=== PATIENT | male | born 1980 | race African-American/Black ===

== ENCOUNTER 2017-08-13 11:54 | Emergency (ER) | payer MEDICAID ==
[~2017-08-13] VITALS: Ht 175.3 cm; Wt 68.9 kg
[~2017-08-13 11:54] MED LIST: ALBUTEROL SULF8.5 GM INH; ATRIPLA TABLET1 EAC1 ORAL; BACTRIM-DS1 EA ORAL; CIPRO500 MG PO; NORCO 5-325 TA1 EACH ORAL; PREDNISONE20 MG ORAL; VIBRAMYCIN100 MG ORAL; atripla; hiv med; hiv meds
[2017-08-13 11:58] VITALS: BP 122/66
[2017-08-13] MEDS ORDERED: NKM (12:04)
[2017-08-13] MEDS ORDERED: PERMETHRIN60 GM TOPIC (12:23)
[2017-08-13 12:38] VITALS: BP 102/64
--- NOTE | 2017-08-13 12:39 | Emergency Room Report ---
History of Present Illness General Chief Complaint: Skin Rash/Abscess Source: Patient Present Illness HPI The patient is a 37-year-old male presenting for rash. He states that this began 2 weeks prior. Described as a 5/10 burning sensation and also intensely itchy. He states that it is on his arms, abdomen, and legs. He denies any known sick contacts or recent travel. He states that he lives in close proximity with many other people. He denies any other symptoms including nausea , vomiting, fever, chills Allergies: Coded Allergies: PENICILLINS (Verified Allergy, Unknown, 11/04/12) Patient History Past Medical History: see triage record Pertinent Family History: none Reviewed Nursing Documentation: PMH: Agreed, PSxH: Agreed Nursing Documentation-PMH Hx Asthma: Yes History Of Psychiatric Problem: Yes - Bipolar Review of Systems All Other Systems: negative except mentioned in HPI Physical Exam Vital Signs Date Time Temp Pulse Resp B/P (MAP) Pulse Ox O2 Delivery O2 Flow Rate FiO2 08/13/17 11:58 97.9 98 16 122/66 99 Room Air Sp02 EP Interpretation: reviewed, normal General Appearance: no apparent distress, alert, GCS 15, non-toxic Head: normocephalic, atraumatic Eyes: bilateral eye normal inspection, bilateral eye PERRL ENT: hearing grossly normal, normal pharynx, no angioedema, normal voice Musculoskeletal: back normal, gait/station normal, normal range of motion, non- tender Neurologic: alert, oriented x3, responsive, motor strength/tone normal, sensory intact, speech normal Psychiatric: judgement/insight normal, memory normal, mood/affect normal, no suicidal/homicidal ideation Skin: rash - This is a maculopapular rash with linear pattern and some burrowing seen. Nontender. Medical Decision Making PA Attestation Dr. Rodriguez is my supervising physician. Patient management was discussed with my supervising physician Diagnostic Impression: Primary Impression: Scabies ER Course The patient is a 37-year-old male presenting for rash. Ddx considered include but not limited to insect bite, contact dermatitis, eczema, cellulitis, varicella, syphilis, among others PE: afebrile. NAD Skin: This is a maculopapular rash with linear pattern and some burrowing seen. Arms, legs, and abdomen. No vesicles. Nontender. The patient is discharged home with prescription for permethrin. He was told he needs to thoroughly clean his surroundings and his clothes and sheets. ER precautions are given Last Vital Signs Date Time Temp Pulse Resp B/P (MAP) Pulse Ox O2 Delivery O2 Flow Rate FiO2 08/13/17 11:58 97.9 98 16 122/66 99 Room Air Status: improved Disposition: HOME, SELF-CARE Condition: Improved Scripts Permethrin* (ELIMITE*) 60 Gm Cream..g. 1 APPLIC TOPIC ONCE, #60 GM 1 Refill Apply cream from head to toe; leave on for 8-14 hours before washing off with water; may reapply in 1 week if live mites appear. Prov: HILLARY MONSALVE 08/13/17 Referrals: [facility],REFERRING (PCP) Patient Instructions: Rash, Pruritus Additional Instructions: I discussed my findings with the patient. All questions and concerns have been answered. Treatment and medication compliance have been addressed. Return to ED if symptoms worsen, new symptoms arise, or if needed for any reason. Patient verbalized understanding of discharge instructions. Please establish and follow up with a primary physician as soon as possible in order to properly care for your chronic conditions. HILLARY MONSALVE Aug 13, 2017 12:39
== END 2017-08-13 12:38 | disposition home or self-care (01) ==
LOC: EMR 12:30
DX: B86 Scabies (principal); F31.9 Bipolar disorder, unspecified; Z88.0 Allergy status to penicillin
CPT/HCPCS: 99283

== ENCOUNTER 2018-11-27 19:31 | Emergency (ER) | payer MEDICAID ==
[~2018-11-27] VITALS: Ht 172.7 cm; Wt 72.6 kg
[~2018-11-27 19:31] MED LIST changes: +NKM; +PERMETHRIN60 GM TOPIC
[2018-11-27 20:00] VITALS: BP 137/98
--- NOTE | 2018-11-27 20:00 | NUR ---
ED Nurse Note: pt walked in due to feeling down after a loss of a mom and a relative on the same week as verbalized by the pt. pt stated that he has intention to hurt himself prior to ed visit, pt stated he is depressed of what is happening to him right now, with the loss and being homeless. pt denies any plan to hurt himself on the moment. pt is calm and cooperative. asked for water and given and pt able to tolerate it. will continue to monitor closely
--- NOTE | 2018-11-27 20:20 | NUR ---
ED Nurse Note: ermd on bedside, pt stated to the ermd plans of suicide by going to a moving traffic to be hit by a car, pt is calm. ermd ordered blood to be drawn and carried out, pt able to give urine specimen. po med given and pt able to tolerate it. pt able to make needs known. will continue to closely monitor.
[2018-11-27 21:02] LABS: BASOPHILS % (AUTO) 1.3 % (0.0-2.0); EOSINOPHILS % (AUTO) 1.6 % (0.0-3.0); HEMATOCRIT 46.3 % (42.0-52.0); HEMOGLOBIN 15.1 G/DL (14.2-18.0); LYMPHOCYTES % (AUTO) 24.1 % (20.0-45.0); MEAN CORPUSCULAR VOLUME 93 FL (80-99); MONOCYTES % (AUTO) 9.1 % (1.0-10.0); PLATELET COUNT 245 K/UL (150-450); RED BLOOD COUNT 4.97 M/UL (4.70-6.10); RED CELL DISTRIBUTION WIDTH 11.8 % (11.6-14.8); WHITE BLOOD COUNT 4.1 K/UL (4.8-10.8)
[2018-11-27 21:34] LABS: ANION GAP 5 mmol/L (5-15); BLOOD UREA NITROGEN 7 mg/dL (7-18); CALCIUM 8.8 MG/DL (8.5-10.1); CARBON DIOXIDE 30 MMOL/L (21-32); CHLORIDE 104 MMOL/L (98-107); CREATININE 1.1 MG/DL (0.55-1.30); POTASSIUM 3.9 MMOL/L (3.5-5.1); SODIUM 139 MMOL/L (136-145)
[2018-11-27 21:38] LABS: ALANINE AMINOTRANSFERASE 35 U/L (12-78); ALBUMIN 3.8 G/DL (3.4-5.0); ALBUMIN/GLOBULIN RATIO 0.9 (1.0-2.7); ALKALINE PHOSPHATASE 106 U/L (46-116); ASPARTATE AMINO TRANSFERASE 34 U/L (15-37); BILIRUBIN,TOTAL 0.3 MG/DL (0.2-1.0); CREATINE KINASE 190 U/L (26-308)
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
--- NOTE | 2018-11-27 22:22 | NUR ---
ED Nurse Note: pt went to restroom and back to bed now. no complains at the moment. pt asked for water and given. pt ablo to tolerate well. will continue to monitor.
[2018-11-27 22:23] VITALS: BP 125/75
--- NOTE | 2018-11-28 00:26 | NUR ---
ED Nurse Note: pt is calmly sleeping on gurney, breathing normal and not in acute distress.
[2018-11-28 00:27] VITALS: BP 120/70
[2018-11-28 02:06] LABS: APPEARANCE,URINE CLOUDY; BILIRUBIN, URINE NEGATIVE (NEGATIVE); COLOR,URINE BROWN; GLUCOSE, URINE (UA) NEGATIVE (NEGATIVE); KETONES,URINE NEGATIVE (NEGATIVE); LEUKOCYTE ESTERASE ,URINE NEGATIVE (NEGATIVE); NITRITE,URINE NEGATIVE (NEGATIVE); PH,URINE 5 (4.5-8.0); PROTEIN,URINE 1+ (NEGATIVE); UROBILINOGEN,URINE 4 MG/DL (0.0-1.0)
--- NOTE | 2018-11-28 02:47 | NUR ---
ED Nurse Note: pt is going to be transferedto [facility] in [place], report given mick vogel rn.
[2018-11-28 02:55] VITALS: BP 125/75
--- NOTE | 2018-11-28 02:59 | NUR ---
ED Nurse Note: pt aware of the tranfer, pt is calm. pt is sitting on the gurney. rn on the bedside. will continue to monitor.
[2018-11-28 03:39] VITALS: BP 125/75
--- NOTE | 2018-11-28 03:39 | NUR ---
ED Nurse Note: pt is tranfered to [facility] via [facility] via gurney. pt took all belongings.
== END 2018-11-28 03:39 ==
LOC: EMR 20:39
DX: R45.851 Suicidal ideations (principal); F43.20 Adjustment disorder, unspecified; F15.10 Other stimulant abuse, uncomplicated; B20 Human immunodeficiency virus [HIV] disease; Z88.0 Allergy status to penicillin
CPT/HCPCS: 36415; 80053; 80307; 80329; 81003; 82550; 84484; 85025; 87086; 87181; 93005; 99285